=== PATIENT | male | born 1950 | race Two or more races ===

== ENCOUNTER 2021-03-23 14:10 | Emergency (ER) | payer BC ==
[~2021-03-23] VITALS: Ht 172.7 cm; Wt 51.7 kg
--- NOTE | 2021-03-23 14:36 | NUR ---
X-RAY TECH AT THE BEDSIDE
[2021-03-23] MEDS ORDERED: TAMS-12 PO (14:41)
[2021-03-23] MEDS ORDERED: MAGN400O6 PO (14:41)
[2021-03-23] MEDS ORDERED: NA P133E RC (14:41)
[2021-03-23] MEDS ORDERED: FERR325T23 PO (14:41)
[2021-03-23] MEDS ORDERED: INSU100V39 SQ (14:41)
[2021-03-23] MEDS ORDERED: ASPI-1420 PO (14:41)
[2021-03-23] MEDS ORDERED: FOLI0.8T2 PO (14:41)
[2021-03-23] MEDS ORDERED: ROSU5TAB PO (14:41)
[2021-03-23] MEDS ORDERED: BISA10SU11 RC (14:41)
[2021-03-23] MEDS ORDERED: LISI2.5T2 PO (14:41)
[2021-03-23] MEDS ORDERED: CLON0.1T PO (14:41)
[2021-03-23] MEDS ORDERED: DOCU-141 PO (14:41)
[2021-03-23] MEDS ORDERED: GUAI100S11 PO (14:41)
[2021-03-23] MEDS ORDERED: PANT40TA49 PO (14:41)
[2021-03-23] MEDS ORDERED: ACET-2605 PO (14:41)
[2021-03-23] MEDS ORDERED: CRAN425C6 PO (14:41)
[2021-03-23] MEDS ORDERED: ACET-868 PO (14:41)
[2021-03-23] MEDS ORDERED: CARV3.122 PO (14:41)
[2021-03-23] MEDS ORDERED: SENN-261 PO (14:41)
[2021-03-23 15:21] LABS: HEMOGLOBIN 8.1 g/dL (13.5-17.5); MEAN CORPUSCULAR HGB CONC 34 g/dl (31.0-36.0); RED BLOOD CELL COUNT(AUTO) 2.56 MIL/uL (4.5-6.0)
[2021-03-23 15:24] LABS: BASOPHILS % (AUTO) 0.1 % (0.0-2.0); EOSINOPHILS % (AUTO) 2.5 % (0.0-6.0); HEMATOCRIT 24 % (39-51); LYMPHOCYTES # (AUTO) 1.5 K/uL (0.8-4.8); LYMPHOCYTES % (AUTO) 13.8 % (20.0-44.0); MEAN CORPUSCULAR VOLUME 92 fL (80-96); MONOCYTES # (AUTO) 0.6 K/uL (0.1-1.30); MONOCYTES % (AUTO) 5.8 % (2.0-12.0); NEUTROPHILS # (AUTO) 8.5 K/uL (1.8-8.9); NEUTROPHILS % (AUTO) 77.8 % (43.0-81.0); PLATELET COUNT (AUTO) 525 K/uL (150-450); WHITE BLOOD COUNT (AUTO) 10.9 K/uL (4.3-11.0)
[2021-03-23 15:27] LABS: BILIRUBIN,URINE Negative (NEGATIVE); COLOR,URINE YELLOW (YELLOW); LEUKOCYTE ESTERASE ,URINE Trace (NEGATIVE); NITRITE, URINE Negative (NEGATIVE); PH,URINE 5.5 (5.0-8.0); PROTEIN,URINE 30 mg/dl (NEGATIVE); UGLUCOSE 250 MG/DL mg/dL (NEGATIVE); UROBILINOGEN,URINE 0.2 EU/dL (0.2)
[2021-03-23 15:31] LABS: CALCIUM, SERUM 7.9 mg/dL (8.5-10.1); CARBON DIOXIDE 28 mmol/L (21-32); CHLORIDE 103 mmol/L (98-107); CREATININE 1.8 mg/dL (0.6-1.3); GLUCOSE 206 mg/dL (74-106); POTASSIUM 3.6 mmol/L (3.5-5.1); SODIUM SERUM 138 mmol/L (136-145); UREA NITROGEN, BLOOD 32 mg/dL (7-18)
[2021-03-23 15:37] LABS: BACTERIA,URINE Few /HPF (None Seen)
[2021-03-23 15:40] LABS: ALANINE AMINOTRANSFERASE 27 U/L (12-78); ALBUMIN 1.7 g/dL (3.4-5.0); ALKALINE PHOSPHATASE 180 U/L (46-116); ASPARTATE AMINOTRANSFERASE 19 U/L (15-37); BILIRUBIN,DIRECT 0.1 mg/dL (0.0-0.2); BILIRUBIN,TOTAL 0.2 mg/dL (0.2-1.0); TOTAL PROTEIN, SERUM 6.2 g/dL (6.4-8.2)
[2021-03-23 15:43] LABS: MAGNESIUM 1.5 mg/dL (1.8-2.4)
[2021-03-23] MEDS ORDERED: ENOXAPARIN SODIUM 40 MG/0.4 ML DISP.SYRIN SQ ONE (16:00)
[2021-03-23] MEDS ORDERED: FUROSEMIDE 40 MG/4 ML VIAL IV ONE (16:00)
[2021-03-23] MEDS ORDERED: LEVOFLOXACIN 750 MG /D5W 150ML PIGGYBACK IV ONE (16:00)
--- NOTE | 2021-03-23 16:01 | NUR ---
COVID SWAB DONE AND SENT TO THE LAB
[2021-03-23 16:04] LABS: THYROID STIMULATING HORMONE 0.769 uIU/mL (0.358-3.74)
[2021-03-23] MEDS ORDERED: FUROSEMIDE 40 MG/4 ML VIAL ONE (16:22)
[2021-03-23] MEDS ORDERED: ENOXAPARIN SODIUM 60 MG/0.6 ML DISP.SYRIN SQ ONE (16:22)
--- NOTE | 2021-03-23 16:25 | NUR ---
LOVENOX 50 MG OK TO GIVEN PER DR LAW DESPITE CREATININE OF 1.8
--- NOTE | 2021-03-23 17:32 | NUR ---
COVID ANTIGEN SWAB DONE AND SENT TO THE LAB
--- NOTE | 2021-03-23 18:13 | NUR ---
FAXED CLINICALS TO [facility] [phone] TEL [phone]
--- NOTE | 2021-03-23 19:26 | NUR ---
faxed covid result to the cm and spoke to her over the phone re clinicals
--- NOTE | 2021-03-23 20:15 | NUR ---
PT SLEEPING, ATTACHED TO MONITOR AND POX.
--- NOTE | 2021-03-23 20:21 | NUR ---
DR CHRISTIE ON THE PHONE W/ DR CHA, [facility]
--- NOTE | 2021-03-23 21:45 | NUR ---
PT ATTACHED TO MONITOR, BREATHING EVENLY AND UNLABORED.
--- NOTE | 2021-03-23 22:05 | NUR ---
CALLED [facility] TRIMMING CUTTER MACHINE FOR F/U. SHE WILL CALL US BACK WITH AN UPDATE
--- NOTE | 2021-03-23 22:10 | NUR ---
REC'D A CALL BACK FROM [facility] SIMS HAVE THE ER DR FROM [facility] ON LINE. DR CHRISTIE SPOKE TO THE MD. PT WILL BE GETTING TRANSFERRED TO [facility]
--- NOTE | 2021-03-23 23:40 | NUR ---
PT SLEEPING, ATTACHED TO MONITOR AND POX.
--- NOTE | 2021-03-24 00:25 | NUR ---
PT IS ACCEPTED AT [facility] UNDER THE CARE OF DR. NUNEZ. CALL [phone] FOR REPORT. PT IS GOING TO RM [id number]
--- NOTE | 2021-03-24 00:26 | NUR ---
TRANSPORT AUTHORIZATION: [id number]
--- NOTE | 2021-03-24 00:31 | NUR ---
[facility] EARLIEST PICJUP TIME AT 1400
--- NOTE | 2021-03-24 01:20 | NUR ---
CALLED [facility] FOR ALS, NO AVAILABLE UNITS
--- NOTE | 2021-03-24 01:20 | NUR ---
[facility] CALLED FOR ALS TRANSPORT, DOES NOT DO ALS TRANSPORT
--- NOTE | 2021-03-24 01:25 | NUR ---
CALLED [facility], DOES NOT ACCEPT [employer] FOR ALS TRANSPORT EVEN WITH AUTHORIZATION PER DISPATCH.
--- NOTE | 2021-03-24 01:30 | NUR ---
PT WATCHING TV IN BED, ATTACHED TO MONITOR AND POX
--- NOTE | 2021-03-24 01:34 | NUR ---
[facility] CHARGEBACK ANALYST TIME AT 1030.
--- NOTE | 2021-03-24 02:31 | NUR ---
PT SLEEPING, BREATHING EVENLY AND UNLABORED
--- NOTE | 2021-03-24 03:13 | NUR ---
PT WATCHING TV QUIETLY. ATTACHED TO MONITOR AND POX.
--- NOTE | 2021-03-24 04:48 | NUR ---
REC'D A CALL FROM GIL[facility] FROM [facility]SP[facility]. ALS TRANSPO FOR 1000 CANCELED DUE TO STQAFF SHORTAGE
--- NOTE | 2021-03-24 06:22 | NUR ---
pt watching tv, quietly. attached to monitor and pox.
--- NOTE | 2021-03-24 07:50 | NUR ---
CONFIRMED WITH [facility] ETA IS 1300
--- NOTE | 2021-03-24 12:50 | NUR ---
[facility] CALLED UNABLE TO DO ALS TRANSPORT DUE TO STAFFING.
--- NOTE | 2021-03-24 13:48 | NUR ---
CALLED [facility] TEL [phone] SUZANNA WILL CALL US BACK TO HELP WITH TRANSPORTATION.
--- NOTE | 2021-03-24 14:50 | NUR ---
CALL FROM [facility], AMBULANCE TRANSPORT IS 1500
[2021-03-24 16:00] VITALS: BP 153/74
--- NOTE | 2021-03-24 16:00 | NUR ---
REPORT GIVEN TO NURSE TURNER FROM [facility] REPORT GIVEN TO AMBULANCE STAFF
--- NOTE | 2021-03-24 16:16 | NUR ---
THE PATIENT IS TRANSFERED TO [facility] IN STABLE CONDITION
== END 2021-03-24 16:17 ==
LOC: ER 14:16
DX: J18.9 Pneumonia, unspecified organism (principal); I21.4 Non-ST elevation (NSTEMI) myocardial infarction; Z20.822 Contact with and (suspected) exposure to COVID-19; I50.9 Heart failure, unspecified; E78.5 Hyperlipidemia, unspecified; E11.22 Type 2 diabetes mellitus with diabetic chronic kidney disease; N18.9 Chronic kidney disease, unspecified; Z79.4 Long term (current) use of insulin; N40.0 Benign prostatic hyperplasia without lower urinary tract symptoms; Z79.899 Other long term (current) drug therapy; K21.9 Gastro-esophageal reflux disease without esophagitis; E83.42 Hypomagnesemia; D64.9 Anemia, unspecified
CPT/HCPCS: 36415; 71045; 80048; 80076; 81001; 83735; 83880; 84443; 84484; 85025; 85652; 85730; 86850; 86923; 87086; 87426; 93005; 96365; 96372; 96375; 99291; 99292; J1650; J1940; J1956; C9803; U0003

== ENCOUNTER 2021-08-12 11:13 | Inpatient (IN) | payer BC, OTHER ==
[~2021-08-12] VITALS: Ht 165.1 cm; Wt 39.5 kg
[2021-08-12] VITALS (7 sets, daily range): BP systolic 151–183; BP diastolic 71–111
[~2021-08-12 11:13] MED LIST: ACET-2605 PO; ACET-868 PO; ASPI-1420 PO; BISA10SU11 RC; CARV3.122 PO; CLON0.1T PO; CRAN425C6 PO; DOCU-141 PO; FERR325T23 PO; FOLI0.8T2 PO; GUAI100S11 PO; INSU100V39 SQ; LISI2.5T2 PO; MAGN400O6 PO; NA P133E RC; PANT40TA49 PO; ROSU5TAB PO; SENN-261 PO; TAMS-12 PO
--- NOTE | 2021-08-12 11:19 | NUR ---
ACCUCHECK READING IS 474. DR MOSQUEDA AWARE.
--- NOTE | 2021-08-12 11:25 | NUR ---
SHER RA60 From [facility] ALOC/Hypoxic 88%, BS-545. The patient is received on non-rebreather mask 15L/min with saturation is 100%. Respiration regular. Attached to the monitor. Warm blanket provided for comfort. Will continue to monitor the patient.
--- NOTE | 2021-08-12 11:26 | NUR ---
THE PATIENT PRESENTED WITH GASPAR CATH.
--- NOTE | 2021-08-12 11:30 | NUR ---
MOVE SHEET SUBMITTED.
--- NOTE | 2021-08-12 11:33 | NUR ---
The patient is placed on oxygen at 5L.min via nasal cannula and saturation is at 96%. Dr. Morgan made aware.
--- NOTE | 2021-08-12 11:50 | NUR ---
THE PATIENT IS TAKEN TO CT [facility]IA [facility]
[2021-08-12] MEDS ORDERED: IV NS 0.9% 500 ML BAG IV ONE (12:00)
--- NOTE | 2021-08-12 12:00 | NUR ---
THE PATIENT IS BACK FROM CT VIA [facility]
[2021-08-12] MEDS ORDERED: INSU100V3 IJ (12:05)
--- NOTE | 2021-08-12 12:10 | NUR ---
COVID ANTIGEN SWAB DONE AND SENT TO THE LAB.
--- NOTE | 2021-08-12 12:17 | NUR ---
URINE COLLECTED AND SENT TO THE LAB
[2021-08-12 12:32] LABS: BASOPHILS % (AUTO) 0.1 % (0.0-2.0); HEMATOCRIT 37 % (39-51); HEMOGLOBIN 11.9 g/dL (13.5-17.5); LYMPHOCYTES # (AUTO) 0.6 K/uL (0.8-4.8); LYMPHOCYTES % (AUTO) 2.4 % (20.0-44.0); MEAN CORPUSCULAR HGB CONC 32 g/dl (31.0-36.0); MEAN CORPUSCULAR VOLUME 94 fL (80-96); MONOCYTES # (AUTO) 0.3 K/uL (0.1-1.30); MONOCYTES % (AUTO) 1.4 % (2.0-12.0); NEUTROPHILS # (AUTO) 22.5 K/uL (1.8-8.9); NEUTROPHILS % (AUTO) 96.1 % (43.0-81.0); PLATELET COUNT (AUTO) 427 K/uL (150-450); RED BLOOD CELL COUNT(AUTO) 3.99 MIL/uL (4.5-6.0); WHITE BLOOD COUNT (AUTO) 23.4 K/uL (4.3-11.0)
[2021-08-12 12:40] LABS: ALANINE AMINOTRANSFERASE 23 U/L (12-78); ALBUMIN 3.1 g/dL (3.4-5.0); ALKALINE PHOSPHATASE 235 U/L (46-116); ASPARTATE AMINOTRANSFERASE 12 U/L (15-37); BILIRUBIN,DIRECT 0.2 mg/dL (0.0-0.2); BILIRUBIN,TOTAL 0.6 mg/dL (0.2-1.0); CALCIUM, SERUM 10.2 mg/dL (8.5-10.1); CHLORIDE 97 mmol/L (98-107); CREATININE 6.3 mg/dL (0.6-1.3); SODIUM SERUM 130 mmol/L (136-145); TOTAL PROTEIN, SERUM 9.4 g/dL (6.4-8.2)
[2021-08-12 12:48] LABS: CARBON DIOXIDE 8 mmol/L (21-32); POTASSIUM 7.9 mmol/L (3.5-5.1)
[2021-08-12 12:49] LABS: GLUCOSE 576 mg/dL (74-106); UREA NITROGEN, BLOOD 175 mg/dL (7-18)
--- NOTE | 2021-08-12 12:50 | NUR ---
LAB CALLED [place] 4.9 DR. MOSQUEDA AWARE.
--- NOTE | 2021-08-12 12:55 | NUR ---
DR. SHOOK SPEAKING WITH DR. MOSQUEDA.
[2021-08-12] MEDS ORDERED: IV NS 0.9% 1,000 ML IV PRN (13:00)
[2021-08-12] MEDS ORDERED: CEFEPIME 1 GM in IV D5W 50 ML IV ONE (13:00)
[2021-08-12] MEDS ORDERED: INSULIN REGULAR, HUMAN 100 UNITS in IV NS 0.9% 100 ML IV PRN ×2 (13:00)
[2021-08-12 13:25] LABS: BILIRUBIN,URINE NEGATIVE (NEGATIVE); COLOR,URINE YELLOW (YELLOW); LEUKOCYTE ESTERASE ,URINE LARGE (NEGATIVE); NITRITE, URINE NEGATIVE (NEGATIVE); PROTEIN,URINE >=300 mg/dl (NEGATIVE); UGLUCOSE NEGATIVE (NEGATIVE); UROBILINOGEN,URINE 0.2 EU/dL (0.2)
[2021-08-12 13:27] LABS: PH,URINE >9.0 (5.0-8.0)
[2021-08-12] MEDS ORDERED: INSULIN REGULAR, HUMAN 100 UNIT/ML 10 ML VIAL ONE (13:32)
[2021-08-12 13:36] LABS: CALCIUM, SERUM 9.6 mg/dL (8.5-10.1); CHLORIDE 98 mmol/L (98-107); CREATININE 6.3 mg/dL (0.6-1.3); MAGNESIUM 3.1 mg/dL (1.8-2.4); SODIUM SERUM 130 mmol/L (136-145)
[2021-08-12] MEDS ORDERED: SODIUM BICARBONATE SYR 50 MEQ/50 ML DISP.SYRIN ONE (13:38)
[2021-08-12] MEDS ORDERED: CALCIUM CHLORIDE 1,000 MG/10 ML DISP.SYRIN ONE (13:38)
[2021-08-12] MEDS: VANCOMYCIN 1 GM in IV D5W 250 ML IV ONE ×2 (13:40→14:19)
[2021-08-12] MEDS ORDERED: ALBUTEROL FS 2.5 MG/3 ML VIAL.NEB ONE (13:46)
[2021-08-12 13:54] LABS: RBC,URINE 81-100 /HPF (0-2)
[2021-08-12 13:56] LABS: BACTERIA,URINE Moderate /HPF (None Seen); SQUAMOUS EPITHELIAL CELL,UR None Seen /HPF (None Seen); TRIPLE PHOSPHATE CRYSTAL,UR Moderate /HPF (None Seen)
[2021-08-12 13:56] LABS: CARBON DIOXIDE 6 mmol/L (21-32); GLUCOSE 584 mg/dL (74-106); POTASSIUM 7.8 mmol/L (3.5-5.1)
[2021-08-12 13:57] LABS: PHOSPHORUS 9.6 mg/dL (2.5-4.9); UREA NITROGEN, BLOOD 173 mg/dL (7-18)
[2021-08-12] MEDS ORDERED: SODIUM BICARBONATE SYR 50 MEQ/50 ML DISP.SYRIN IV ONE (14:00)
[2021-08-12] MEDS ORDERED: ALBUTEROL FS 2.5 MG/3 ML VIAL.NEB NEB ONE (14:00)
[2021-08-12] MEDS ORDERED: CALCIUM CHLORIDE 1,000 MG/10 ML DISP.SYRIN IV ONE (14:00)
[2021-08-12] MEDS ORDERED: INSULIN REGULAR, HUMAN 100 UNIT/ML 10 ML VIAL IV ONE (14:00)
[2021-08-12] MEDS ORDERED: IV NS 0.9% 1,000 ML IV ONE ×2 (14:30→16:00)
--- NOTE | 2021-08-12 14:39 | NUR ---
NS 1000 ML WIDE OPEN X1 PER DR MOSQUEDA. THE ORDER IS READ BACK, VERIFIED. NOTED AND CARRIED OUT.
[2021-08-12 15:17] LABS: CALCIUM, SERUM 9.2 mg/dL (8.5-10.1); CHLORIDE 104 mmol/L (98-107); CREATININE 5.6 mg/dL (0.6-1.3); MAGNESIUM 2.9 mg/dL (1.8-2.4); SODIUM SERUM 133 mmol/L (136-145)
--- NOTE | 2021-08-12 15:24 | NUR ---
[facility] [phone] FAXING CLINICALS TO [phone]
[2021-08-12 15:47] LABS: CARBON DIOXIDE 6 mmol/L (21-32); GLUCOSE 489 mg/dL (74-106); POTASSIUM 6.7 mmol/L (3.5-5.1); UREA NITROGEN, BLOOD 169 mg/dL (7-18)
[2021-08-12 15:48] LABS: PHOSPHORUS 8.3 mg/dL (2.5-4.9)
[2021-08-12] MEDS ORDERED: CLONIDINE HCL 0.1 MG TABLET PO PRN (16:00)
[2021-08-12] MEDS ORDERED: MAGNESIUM HYDROXIDE 30 ML UDC PO PRN (16:00)
[2021-08-12] MEDS ORDERED: SODIUM POLYSTYRENE SULFONATE 15 G/60 ML BOTTLE PO ONE (16:00)
[2021-08-12] MEDS ORDERED: SODIUM BICARBONATE 5 ML VIAL IV ONE (16:00)
[2021-08-12] MEDS ORDERED: IV 1/2NS 1000 ML 1,000 ML IV PRN (16:00)
[2021-08-12] MEDS ORDERED: BISACODYL SUPP (10 MG) 10 MG/SUPP.RECT SUPP.RECT RC PRN (16:00)
[2021-08-12] MEDS ORDERED: NA PHOS,M-B/NA PHOS,DI-BA 1 EA ENEMA RC PRN (16:00)
[2021-08-12] MEDS ORDERED: ACETAMINOPHEN 325 MG TABLET PO PRN (16:00)
--- NOTE | 2021-08-12 16:29 | NUR ---
[facility] CALLED PT APPROVED FOR ADMISSION REF # [id number]
[2021-08-12 16:58] LABS: CALCIUM, SERUM 9.9 mg/dL (8.5-10.1); CHLORIDE 103 mmol/L (98-107); SODIUM SERUM 133 mmol/L (136-145)
--- NOTE | 2021-08-12 17:00 | NUR ---
PATIENT WILL GO TO ICU RM 257.
[2021-08-12 17:02] LABS: CARBON DIOXIDE 7 mmol/L (21-32); GLUCOSE 428 mg/dL (74-106); POTASSIUM 6.6 mmol/L (3.5-5.1)
[2021-08-12 17:03] LABS: PHOSPHORUS 8.7 mg/dL (2.5-4.9); UREA NITROGEN, BLOOD 168 mg/dL (7-18)
--- NOTE | 2021-08-12 17:15 | NUR ---
REPORT GIVEN TO NURSE MEJIA FROM ICU FOR JOHN
[2021-08-12] MEDS ORDERED: INSULIN REGULAR, HUMAN 100 UNIT/ML 3 ML VIAL IJ SCH (17:30)
--- NOTE | 2021-08-12 17:30 | NUR ---
DR SHOOK MADE AWARE OF US KIDENY RESULT AND THAT BLADDER SCAN SHOWED 400 ML OF URINE AND THAT THE PATIENT CAME IN WITH GASPAR CATH WITH ABOUT 20 ML IOF URINE OUTPUT SINCE COMING TO ER. PER DR SHOOK TO REPLACE THE GASPAR CATH. THE PATIENT IS IN PROCESS OF GETTING TRANSFERED TO ROOM 257, SO RECEIVING NURSE ROBERTO IS MADE AWARE AND HE VERBALIZED UNDERSTANDING. ASLO, REMINIDED THE NURSE THAT ACCUCHECK TIME WILL BE DUE SHORTLY. THE PATIENT IS TRANSFERED TO ROOM 257 IN STABLE CONDITION AND PER ACLS POLICY.
[2021-08-12] MEDS ORDERED: INS (REG) DRIP 100 U/100 ML NS IV PRN ×2 (18:30)
--- NOTE | 2021-08-12 18:30 | NUR ---
RN NOTES RECEIVED CARE OF PATIENT FROM ER WHILE PATIENT AWAKE, CONFUSED, NON-VERBAL, DOES NOT FOLLOW COMMANDS. PATIENT ON ROOM AIR, BREATHING EVEN AND UNLABORED, O2 SAT IS 100%. PATIENT ON TELE MONITOR SHOWING NSR WITH HR OF 73. PATIENT NOTED WITH GASPAR CATH, DRAINING MINIMAL AMOUNTS OF DARK YELLOW URINE. PATIENT ON INSULIN DRIP RUNNING AT 4.123 ML/HR, LATEST GLUCOSE READING IS 184, WILL FOLLOW HOSPITAL PROTOCOL AND DECREASE RATE TO 2.76. SAFETY MEASURES IMPLEMENTED ACCORDING TO HOSPITAL PROTOCOLS. WILL CONTINUE TO MONITOR PATIENT.
[2021-08-12] MEDS: CARVEDILOL 3.125 MG TABLET PO SCH ×2 (18:58→20:50)
[2021-08-12] MEDS: TAMSULOSIN 0.4 MG CAP.SR.24H PO SCH (18:58)
--- NOTE | 2021-08-12 20:51 | NUR ---
RN NOTES WILL HOLD SCHEDULED 2100 ADMINISTRATION OF COREG 3.125MG PER PHARMACY SINCE LAST ADMINISTRATION WAS AT 1858. WILL CONTINUE TO MONITOR PATIENT.
[2021-08-12 21:27] LABS: CALCIUM, SERUM 9.6 mg/dL (8.5-10.1); CHLORIDE 108 mmol/L (98-107); CREATININE 5.5 mg/dL (0.6-1.3); GLUCOSE 88 mg/dL (74-106); SODIUM SERUM 136 mmol/L (136-145)
[2021-08-12 21:29] LABS: CARBON DIOXIDE 10 mmol/L (21-32)
[2021-08-12 21:30] LABS: UREA NITROGEN, BLOOD 164 mg/dL (7-18)
--- NOTE | 2021-08-12 21:30 | NUR ---
RN NOTES INSULIN DRIP RUNNING AT 1.065 FOR A GLUCOSE READING OF 71 BASED ON [address] PR[address]. DR. SHOOK MADE AWARE. DR SHOOK ALSO MADE AWARE OF ANION GAP OF 22. LATEST GLUCOSE READING IS 74. ORDER IS TO ADMINISTER 10 UNITS OF LANTUS, 2 HOURS LATER DISCONTINUE INSULIN DRIP, THEN START MODERATE ACHS SLIDING SCALE. WILL CARRY OUT ORDERS AND CONTINUE TO MONITOR PATIENT.
[2021-08-12] MEDS ORDERED: INSULIN GLARGINE, 100 UNIT/ML CARTRIDGE SQ ONE ×2 (22:00→22:20)
[2021-08-12] MEDS: IV D5/0.45 NACL 1,000 ML IV PRN (22:17)
[2021-08-12] MEDS: SENNOSIDES 8.6 MG TABLET PO SCH (22:24)
[2021-08-12] MEDS: ATORVASTATIN 10 MG TABLET PO SCH (22:24)
[2021-08-12] MEDS: BLOOD SUGAR DIAGNOSTIC 1 EACH STRIP VI SCH (22:27)
[2021-08-13] VITALS (51 sets, daily range): BP systolic 89–167; BP diastolic 36–101
[2021-08-13 01:26] LABS: CALCIUM, SERUM 9.3 mg/dL (8.5-10.1); CARBON DIOXIDE 12 mmol/L (21-32); CHLORIDE 109 mmol/L (98-107); CREATININE 5.4 mg/dL (0.6-1.3); GLUCOSE 106 mg/dL (74-106); POTASSIUM 5.7 mmol/L (3.5-5.1); SODIUM SERUM 137 mmol/L (136-145)
[2021-08-13 01:45] LABS: UREA NITROGEN, BLOOD 162 mg/dL (7-18)
[2021-08-13 04:37] LABS: BASOPHILS # (AUTO) 0.1 K/uL (0.0-0.2); BASOPHILS % (AUTO) 0.3 % (0.0-2.0); HEMATOCRIT 31 % (39-51); HEMOGLOBIN 10.2 g/dL (13.5-17.5); LYMPHOCYTES # (AUTO) 0.5 K/uL (0.8-4.8); LYMPHOCYTES % (AUTO) 1.8 % (20.0-44.0); MEAN CORPUSCULAR HGB CONC 33 g/dl (31.0-36.0); MEAN CORPUSCULAR VOLUME 88 fL (80-96); MONOCYTES # (AUTO) 0.3 K/uL (0.1-1.30); NEUTROPHILS # (AUTO) 26.2 K/uL (1.8-8.9); NEUTROPHILS % (AUTO) 96.9 % (43.0-81.0); PLATELET COUNT (AUTO) 289 K/uL (150-450); RED BLOOD CELL COUNT(AUTO) 3.52 MIL/uL (4.5-6.0)
[2021-08-13 04:50] LABS: ALANINE AMINOTRANSFERASE 22 U/L (12-78); ALBUMIN 2.5 g/dL (3.4-5.0); ALKALINE PHOSPHATASE 257 U/L (46-116); ASPARTATE AMINOTRANSFERASE 25 U/L (15-37); BILIRUBIN,TOTAL 0.8 mg/dL (0.2-1.0); CARBON DIOXIDE 12 mmol/L (21-32); CHLORIDE 106 mmol/L (98-107); CREATININE 5.2 mg/dL (0.6-1.3); GLUCOSE 191 mg/dL (74-106); POTASSIUM 5.6 mmol/L (3.5-5.1); SODIUM SERUM 135 mmol/L (136-145); TOTAL PROTEIN, SERUM 7.5 g/dL (6.4-8.2)
[2021-08-13 05:13] LABS: UREA NITROGEN, BLOOD 165 mg/dL (7-18)
[2021-08-13] MEDS: IV D5/0.45 NACL 1,000 ML IV PRN (06:18)
--- NOTE | 2021-08-13 07:10 | NUR ---
RN NOTES RECEIVED PT ON BED, ALERT, CONFUSED, DOES NOT FOLLOW COMMAND, ON TELE SR HR IN 70'S , GASPAR DRAINING TO GRAVITY, IV SITES CLEAN,DRY AND INTACT , SR UP x3, CALL LIGHT WITHIN EASY REACH, IVF D5 1/2 NS AT 125 CC/HR RUNNING , SR UP x3, CALL LIGHT WITHIN EASY REACH ,BED LOCKED AND IN LOWEST POSITION, CONTINUE TO MONITOR
--- NOTE | 2021-08-13 07:29 | NUR ---
RN NOTES ENDORSED CARE OF PATIENT TO AM NURSE. PATIENT IS IN BED, CONFUSED, RESTLESS, YELLING OUT INCOMPREHENSIBLE WORDS. PATIENT IS ON BILATERAL SOFT WRIST RESTRAINTS, NO SKIN OR CIRCULATORY COMPROMISE NOTED. PATIENT IS ON O2 THERAPY VIA NC AT 3 L/MIN, O2 SAT 100%. PATIENT SHOWING NSR ON TELE MONITOR, NO DISTRESS NOTED. ALL DUE MEDS GIVEN, ALL NEEDS ATTENDED TO. ENDORSED TO AM NURSE FOR JOHN.
--- NOTE | 2021-08-13 08:00 | NUR ---
RN NOTES GASPAR CATHETER CHANGED PER MD ORDER, 700CC CLOUDY, PURULENT, CARLOS COLOR URINE DRAINED.
[2021-08-13] MEDS: FERROUS SULFATE (325 MG) 325 MG/TAB TABLET PO SCH (08:17)
[2021-08-13] MEDS: DOCUSATE SODIUM 100 MG CAPSULE PO SCH (08:17)
[2021-08-13] MEDS: CARVEDILOL 3.125 MG TABLET PO SCH (08:17)
[2021-08-13] MEDS: PANTOPRAZOLE 40 MG TABLET.DR PO SCH (08:17)
[2021-08-13] MEDS: ASPIRIN EC 81 MG TABLET.DR PO SCH (08:17)
[2021-08-13] MEDS: INSULIN REGULAR, HUMAN 100 UNIT/ML 3 ML VIAL SQ PRN (08:20)
[2021-08-13] MEDS: BLOOD SUGAR DIAGNOSTIC 1 EACH STRIP VI SCH ×4 (08:21→21:47)
[2021-08-13] MEDS: *INSULIN REGULAR(HUMULIN R)HUM 100 UNIT/ML VIAL SQ PRN (11:52)
[2021-08-13] MEDS ORDERED: INSULIN GLARGINE, 100 UNIT/ML CARTRIDGE SQ SCH (12:00)
[2021-08-13] MEDS ORDERED: PIPERACILLIN /TAZOBACTAM 2.25 G in IV D5W 50 ML IV SCH (12:00)
[2021-08-13 12:26] LABS: CALCIUM, SERUM 8.5 mg/dL (8.5-10.1); CHLORIDE 106 mmol/L (98-107); CREATININE 5.6 mg/dL (0.6-1.3); GLUCOSE 291 mg/dL (74-106); POTASSIUM 5.6 mmol/L (3.5-5.1); SODIUM SERUM 135 mmol/L (136-145)
[2021-08-13 12:32] LABS: CARBON DIOXIDE 8 mmol/L (21-32)
--- NOTE | 2021-08-13 13:01 | NUR ---
RN NOTES DR SHOOK NOTIFIED REGARDING , BMP RESULTS , NO NEW ORDER RECEIVED.
[2021-08-13] MEDS ORDERED: SODIUM BICARBONATE SYR 50 MEQ/50 ML DISP.SYRIN IV ONE (13:30)
[2021-08-13] MEDS: MEROPENEM 500 MG in IV NS 0.9% 100 ML IV SCH (13:40)
[2021-08-13] MEDS ORDERED: CEFTRIAXONE 1 G in IV D5W 50 ML IV SCH (16:00)
[2021-08-13] MEDS: GLUCERNA SHAKE 237 ML CAN PO SCH (17:00)
--- NOTE | 2021-08-13 17:03 | NUR ---
RN NOTES BG 47 ,REPEAT 48 , PT IS LETHARGIC, ONE AMP OF D50 IV GIVEN , DR SHOOK NOTIFIED, CONTINUE TO MONITOR .
[2021-08-13] MEDS: DEXTROSE 50%-WATER 50 ML DISP.SYRIN IV PRN ×2 (17:05→21:41)
[2021-08-13] MEDS: Z GUARD REMEDY 4 OZ OINT TP SCH (17:24)
[2021-08-13] MEDS: TAMSULOSIN 0.4 MG CAP.SR.24H PO SCH (17:25)
--- NOTE | 2021-08-13 17:35 | NUR ---
RN NOTES BG =150 , PT IS MORE ALERT, REFUSED TO EAT , PT COUGHS WITH PO INTAKE , SWALLOWING EVAL ORDERED, DR SHOOK NOTIFIED, LANTUS HELD PER MD ORDER .
[2021-08-13] MEDS: IV 1/2NS 1000 ML 1,000 ML IV PRN ×2 (19:13→22:59)
--- NOTE | 2021-08-13 19:19 | NUR ---
RN NOTES PT IS ALERT , HOB ELEVATED, IVF 1/NS AT 100CC/HR RUNNING , SR UP x3, CALL LIGHT WITHIN EASY REACH, BED LOCKED AND IN LOWEST POSITION, WILL ENDORSE TO FIREARMS EXPERT NURSE FOR CONTINUITY OF CARE.
--- NOTE | 2021-08-13 19:36 | NUR ---
RN NOTES RECEIVED CARE OF PATIENT FROM AM WHILE PATIENT AWAKE, CONFUSED, NON-VERBAL, DOES NOT FOLLOW COMMANDS, AGITATED AND YELLING INCOMPREHENSIBLE WORDS. PATIENT NOTED WITH BILATERAL SOFT WRIST RESTRAINTS, NO COMPLICATIONS WITH SKIN INTEGRITY OR CIRCULATION. PATIENT ON O2 THERAPY VIA NC RUNNING AT 3 L/MIN, O2 SAT IS 100%. PATIENT ON TELE MONITOR SHOWING NSR WITH HR OF 75. PATIENT NOTED WITH GASPAR CATH, DRAINING LIGHT RED URINE. IV FLUIDS RUNNING AT 100ML/HR WITH IV 1/2NS. SAFETY MEASURES IMPLEMENTED ACCORDING TO HOSPITAL PROTOCOLS. WILL CONTINUE TO MONITOR PATIENT.
[2021-08-13] MEDS: MUPIROCIN OINT 2% 22 GM TUBE NS SCH (21:13)
[2021-08-13] MEDS: ATORVASTATIN 10 MG TABLET PO SCH (21:14)
[2021-08-13] MEDS: SENNOSIDES 8.6 MG TABLET PO SCH (21:14)
[2021-08-13] MEDS: HEPARIN SODIUM, PORCINE 5000 UNITS/1 ML VIAL SQ SCH (21:16)
[2021-08-14] VITALS (27 sets, daily range): BP systolic 93–163; BP diastolic 31–79
[2021-08-14 04:35] LABS: BASOPHILS % (AUTO) 0.2 % (0.0-2.0); EOSINOPHILS % (AUTO) 0.1 % (0.0-6.0); HEMATOCRIT 24 % (39-51); LYMPHOCYTES # (AUTO) 1.3 K/uL (0.8-4.8); LYMPHOCYTES % (AUTO) 6.1 % (20.0-44.0); MEAN CORPUSCULAR HGB CONC 33 g/dl (31.0-36.0); MEAN CORPUSCULAR VOLUME 88 fL (80-96); MONOCYTES # (AUTO) 0.5 K/uL (0.1-1.30); MONOCYTES % (AUTO) 2.5 % (2.0-12.0); NEUTROPHILS # (AUTO) 19.2 K/uL (1.8-8.9); NEUTROPHILS % (AUTO) 91.1 % (43.0-81.0); PLATELET COUNT (AUTO) 218 K/uL (150-450); RED BLOOD CELL COUNT(AUTO) 2.73 MIL/uL (4.5-6.0); WHITE BLOOD COUNT (AUTO) 21.1 K/uL (4.3-11.0)
[2021-08-14 04:55] LABS: ALANINE AMINOTRANSFERASE 18 U/L (12-78); ALBUMIN 2.1 g/dL (3.4-5.0); ALKALINE PHOSPHATASE 180 U/L (46-116); ASPARTATE AMINOTRANSFERASE 23 U/L (15-37); BILIRUBIN,TOTAL 0.4 mg/dL (0.2-1.0); CALCIUM, SERUM 8.1 mg/dL (8.5-10.1); CARBON DIOXIDE 17 mmol/L (21-32); CHLORIDE 110 mmol/L (98-107); CREATININE 4.2 mg/dL (0.6-1.3); GLUCOSE 135 mg/dL (74-106); SODIUM SERUM 139 mmol/L (136-145); TOTAL PROTEIN, SERUM 6.6 g/dL (6.4-8.2)
[2021-08-14 05:02] LABS: UREA NITROGEN, BLOOD 138 mg/dL (7-18)
--- NOTE | 2021-08-14 06:52 | NUR ---
RN NOTES PATIENT REMAINS IN BED, SLEEPING, WAKES UP TO NAME, PATIENT IS CONFUSED. ALL PATIENT NEEDS MET THROUGHOUT SHIFT. ALL DUE MED GIVEN. NO SIGNIFICANT FINDINGS UPON ALL NURSING ASSESSMENTS. SAFETY MEASURES IMPLEMENTED ACCORDING TO HOSPITAL PROTOCOLS. WILL ENDORSE TO AM NURSE FOR CONTINUITY OF CARE.
[2021-08-14] MEDS: GLUCERNA SHAKE 237 ML CAN PO SCH ×2 (07:46→17:27)
[2021-08-14] MEDS: BLOOD SUGAR DIAGNOSTIC 1 EACH STRIP VI SCH ×4 (07:46→21:54)
[2021-08-14] MEDS: PANTOPRAZOLE 40 MG TABLET.DR PO SCH (07:51)
[2021-08-14] MEDS: DOCUSATE SODIUM 100 MG CAPSULE PO SCH (08:00)
[2021-08-14] MEDS: FERROUS SULFATE (325 MG) 325 MG/TAB TABLET PO SCH (08:00)
[2021-08-14] MEDS: ASPIRIN EC 81 MG TABLET.DR PO SCH (08:00)
--- NOTE | 2021-08-14 08:00 | NUR ---
RN NOTES RECEIVED PATIENT IN THE BED UGANDAN SPEAKER, ON O2-2LNC-100%, NO ACUTE RESPIRATORY DISTRESS. PATIENT CONFUSED, TOTAL CARE. DUE MEDICATION ADMINISTERED CRUSHED, AND ADMINISTERED WITH APPLE SAUCE. PATIENT POOR EATER TOLERATED BREAKFAST 10%, BUN/CREATININE LAB VALUES NOTIFIED ROUND CUTTER OPERATOR NEW ORDER IS KEEP MONITORING. PATIENT HAS POOR URINE OUTPUT WELL. ASSIST TURN AND REPOSTION Q 2 HR. CALL LIGHT WITHIN TO REACH, WILL FOLLOW UP.
[2021-08-14] MEDS: MUPIROCIN OINT 2% 22 GM TUBE NS SCH ×2 (08:01→20:53)
[2021-08-14] MEDS: HEPARIN SODIUM, PORCINE 5000 UNITS/1 ML VIAL SQ SCH ×2 (08:13→20:53)
[2021-08-14] MEDS: Z GUARD REMEDY 4 OZ OINT TP SCH ×2 (08:14→21:10)
[2021-08-14] MEDS: IV 1/2NS 1000 ML 1,000 ML IV PRN ×2 (08:20→21:43)
--- NOTE | 2021-08-14 09:40 | NUR ---
PATIENT SEEN AND EXAMINED BY DR. SHOOK. PER MD-PATIENT STABLE FOR DOWNGRADE TO MED SURG FLOOR.
[2021-08-14] MEDS: METOPROLOL SUCCINATE 25 MG TAB.SR.24H PO SCH (10:27)
[2021-08-14] MEDS: MEROPENEM 500 MG in IV NS 0.9% 100 ML IV SCH (12:14)
--- NOTE | 2021-08-14 14:40 | NUR ---
RN NOTES TRANSFERRED PATIENT TO THE MED/SURGE UNIT ROOM 323 BED 1 WITH STABLE CONDITION. PATIENT HAS NO ACUTE RESPIRATORY DISTRESS,VSS, REFUSED PAIN SERBIAN SPEAKER MALE. GASPAR OUTPUT WAS 900ML. BEDSIDE REPORT GIVEN KEYUR BLACKWELL FOLLOW PLAN OF CARE.
--- NOTE | 2021-08-14 15:04 | NUR ---
RN NOTES RECEIVED PT FROM VISUAL COMMUNICATIONS INSTRUCTOR LING VIA BED, PT IS AWAKE, ALERT AND VERBALLY RESPONSIVE, WITH PERIODS OF CONFUSION, NO SIGN OF PAIN, NOT IN DISTRESS, ON ROOM AIR, ROOM SET UP ORIENTATION PROVIDED, IV FLUIDS INFUSING WELL, PT WITH F/C DRAINING WELL WITH YELLOWISH PINKISH URINE, KEPT WARM AND COMFORTABLE IN BED, BED ALARM ON.
[2021-08-14] MEDS: TAMSULOSIN 0.4 MG CAP.SR.24H PO SCH (18:17)
--- NOTE | 2021-08-14 18:42 | NUR ---
RN MS NOTES PT IN BED, RESTING, NO SIGN OF PAIN OR DISTRESS, IV FLUIDS INFUSING WELL, WITH EPISODES OF TRYING TO GET OUT OF BED, FALL RISK, TRYING TO PULL OUT IV TUBES, TRYING TO HIT STAFF, DR. SHOOK INFORMED, ORDERED SOFT WRIST RESTRAINT, MONITORED FOR SKIN INTEGRITY, ASSISTED WITH MEALS, PM CARE PROVIDED, ALL NEEDS ATTENDED.
--- NOTE | 2021-08-14 20:06 | NUR ---
RECEIVED PATIENT IN BED, ALERT/ORIENTED X1, ROOM AIR, CONFUSED, NO COMPLAIN OF PAIN, PULLING IV LINES, BILATERAL SOFT WRIST RESTRAINTS, GASPAR CATHETER DRAINING, IVF AT 75 ML/HR, KEPT SAFE, FOLLOWING RESTRAINTS MONITORING PROTOCOL, WILL CONTINUE TO MONITOR.
[2021-08-14] MEDS: SENNOSIDES 8.6 MG TABLET PO SCH (21:07)
[2021-08-14] MEDS: ATORVASTATIN 10 MG TABLET PO SCH (21:08)
--- NOTE | 2021-08-15 06:42 | NUR ---
ALERT/ORIENTED X1, CONFUSED, ROOM AIR, CAN BE COMBATIVE, REMOVING IV LINES, BILATERAL WRIST RESTRAINTS, FOLLOWED MONITORING PROTOCOL, NO INJURY.GASPAR CATHETER WITH HEMATURIA. PER PLAN OF CARE, FOR ACUTE ON CHRONIC RENAL FAILURE, CONTINUE IVF, GASPAR CATHETER FOR URINARY RETENTION AND BPH. MERREM FOR UTI.
[2021-08-15] MEDS: IV 1/2NS 1000 ML 1,000 ML IV PRN (07:40)
[2021-08-15] MEDS: BLOOD SUGAR DIAGNOSTIC 1 EACH STRIP VI SCH ×4 (07:45→22:26)
[2021-08-15 08:00] VITALS: BP 124/66
[2021-08-15] MEDS: DOCUSATE SODIUM 100 MG CAPSULE PO SCH (09:50)
[2021-08-15] MEDS: GLUCERNA SHAKE 237 ML CAN PO SCH ×2 (09:50→17:42)
[2021-08-15] MEDS: FERROUS SULFATE (325 MG) 325 MG/TAB TABLET PO SCH (09:50)
[2021-08-15] MEDS: METOPROLOL SUCCINATE 25 MG TAB.SR.24H PO SCH (09:50)
[2021-08-15] MEDS: PANTOPRAZOLE 40 MG TABLET.DR PO SCH (09:51)
[2021-08-15] MEDS: MUPIROCIN OINT 2% 22 GM TUBE NS SCH ×2 (09:51→21:20)
[2021-08-15] MEDS: ASPIRIN EC 81 MG TABLET.DR PO SCH (09:51)
[2021-08-15] MEDS: HEPARIN SODIUM, PORCINE 5000 UNITS/1 ML VIAL SQ SCH ×2 (09:54→21:15)
[2021-08-15] MEDS: Z GUARD REMEDY 4 OZ OINT TP SCH ×2 (09:54→21:18)
[2021-08-15] MEDS: LEVOFLOXACIN (250MG) 250 MG TABLET PO SCH (09:56)
[2021-08-15] MEDS ORDERED: OLANZAPINE 10 MG VIAL IM PRN (10:00)
[2021-08-15] MEDS: *INSULIN REGULAR(HUMULIN R)HUM 100 UNIT/ML VIAL SQ PRN ×2 (13:30→22:47)
[2021-08-15 14:32] LABS: CALCIUM, SERUM 8.5 mg/dL (8.5-10.1); CARBON DIOXIDE 15 mmol/L (21-32); CHLORIDE 111 mmol/L (98-107); CREATININE 2.9 mg/dL (0.6-1.3); GLUCOSE 280 mg/dL (74-106); SODIUM SERUM 140 mmol/L (136-145)
[2021-08-15 14:37] LABS: BASOPHILS % (AUTO) 0.2 % (0.0-2.0); EOSINOPHILS % (AUTO) 0.4 % (0.0-6.0); HEMATOCRIT 27 % (39-51); HEMOGLOBIN 9.1 g/dL (13.5-17.5); LYMPHOCYTES # (AUTO) 0.9 K/uL (0.8-4.8); MEAN CORPUSCULAR HGB CONC 33 g/dl (31.0-36.0); MEAN CORPUSCULAR VOLUME 88 fL (80-96); MONOCYTES # (AUTO) 0.3 K/uL (0.1-1.30); NEUTROPHILS # (AUTO) 9.9 K/uL (1.8-8.9); NEUTROPHILS % (AUTO) 88.4 % (43.0-81.0); PLATELET COUNT (AUTO) 222 K/uL (150-450); RED BLOOD CELL COUNT(AUTO) 3.11 MIL/uL (4.5-6.0); WHITE BLOOD COUNT (AUTO) 11.2 K/uL (4.3-11.0)
[2021-08-15 14:39] LABS: UREA NITROGEN, BLOOD 96 mg/dL (7-18)
[2021-08-15 16:00] VITALS: BP 134/60
[2021-08-15] MEDS: TAMSULOSIN 0.4 MG CAP.SR.24H PO SCH (17:42)
--- NOTE | 2021-08-15 19:15 | NUR ---
MS RN OPENING NOTES RECEIVED PATIENT ON BED; AWAKE, CONFUSED, COMBATIVE, ALERT AND ORIENTED X1. BREATHING IS EVEN AND UNLABORED. NOT IN ANY FORM OF RESPIRATORY DISTRESS. ON ROOM AIR, WELL TOLERATED. PATIENT KEPT ON PULLING IV LINES; WITH BILATERAL SOFT WRIST RESTRAINTS FOR SAFETY. WITH GASPAR CATHETER IN PLACED DRAINING TO RED ORANGE URINE. WITH IV ACCESS AT LEFT HAND AND RIGHT ANTECUBITAL; INTACT. SAFETY MEASURES IMPLEMENTED: CALL LIGHT AND TABLE WITHIN EASY REACH, SIDE RAILS UP X3, BED IN LOWEST LOCKED POSITION. WILL CONTINUE TO MONITOR
[2021-08-15 20:00] VITALS: BP 118/61
[2021-08-15] MEDS: ATORVASTATIN 10 MG TABLET PO SCH (21:05)
[2021-08-15] MEDS: SENNOSIDES 8.6 MG TABLET PO SCH (21:06)
[2021-08-16] MEDS: INSULIN REGULAR, HUMAN 100 UNIT/ML 3 ML VIAL SQ PRN ×3 (06:57→17:22)
--- NOTE | 2021-08-16 07:15 | NUR ---
MS RN CLOSING NOTES PATIENT ON BED; AWAKE, CONFUSED, COMBATIVE, ALERT AND ORIENTED X1. BREATHING EVENLY AND NONLABORED. NOT IN ANY FORM OF RESPIRATORY DISTRESS. ON ROOM AIR, WELL TOLERATED. WITH GASPAR CATH IN PLACED DRAINING TO RED ORANGE URINE. WITH IV ACCESS AT LEFT HAND AND RIGHT ANTECUBITAL; INTACT. SAFETY MEASURES IN PLACED. ENDORSED TO MORNING SHIFT FOR CONTINUITY OF CARE.
[2021-08-16 07:18] LABS: BASOPHILS % (AUTO) 0.4 % (0.0-2.0); EOSINOPHILS % (AUTO) 0.3 % (0.0-6.0); HEMATOCRIT 30 % (39-51); LYMPHOCYTES # (AUTO) 1.3 K/uL (0.8-4.8); LYMPHOCYTES % (AUTO) 11.9 % (20.0-44.0); MEAN CORPUSCULAR HGB CONC 34 g/dl (31.0-36.0); MEAN CORPUSCULAR VOLUME 88 fL (80-96); MONOCYTES # (AUTO) 0.5 K/uL (0.1-1.30); MONOCYTES % (AUTO) 4.3 % (2.0-12.0); NEUTROPHILS # (AUTO) 8.9 K/uL (1.8-8.9); NEUTROPHILS % (AUTO) 83.1 % (43.0-81.0); PLATELET COUNT (AUTO) 218 K/uL (150-450); RED BLOOD CELL COUNT(AUTO) 3.39 MIL/uL (4.5-6.0); WHITE BLOOD COUNT (AUTO) 10.7 K/uL (4.3-11.0)
--- NOTE | 2021-08-16 07:29 | NUR ---
MS RN OPENING NOTES RECEIVED PT AWAKE IN BED, A/O X1 CONFUSED AND COMBATIVE. PT ON SOFT WRIST RESTRAINT DUE TO PT'S PULLING IV. CHECKED ON CIRCULATIONS, NO SIGNS OF CIRCULATION PROBLEM NOTED. ON RA, TOLERATING WELL. BREATHING IS EVEN AND UNLABORED. NOT IN ANY SIGN OF RESPIRATORY DISTRESS. WITH GASPAR CATHETER IN PLACED DRAINING WELL WITH RED ORANGE COLOR URINE. IV ACCESS ON LEFT HAND AND RAC, G #20, INTACT AND PATENT. SAFETY MEASURES IN PLACED: BED IN LOWEST AND LOCKED POSITION, CALL LIGHT AND TABLE WITHIN EASY REACH, SIDE RAILS UP X3, WILL CONTINUE TO MONITOR
[2021-08-16 07:56] LABS: CALCIUM, SERUM 8.9 mg/dL (8.5-10.1); CARBON DIOXIDE 14 mmol/L (21-32); CHLORIDE 110 mmol/L (98-107); CREATININE 2.5 mg/dL (0.6-1.3); GLUCOSE 170 mg/dL (74-106); POTASSIUM 4.2 mmol/L (3.5-5.1); SODIUM SERUM 141 mmol/L (136-145)
[2021-08-16 08:00] VITALS: BP 144/70
[2021-08-16] MEDS: BLOOD SUGAR DIAGNOSTIC 1 EACH STRIP VI SCH ×4 (08:15→21:47)
[2021-08-16] MEDS: GLUCERNA SHAKE 237 ML CAN PO SCH (08:18)
[2021-08-16] MEDS: PANTOPRAZOLE 40 MG TABLET.DR PO SCH (08:18)
--- NOTE | 2021-08-16 08:18 | NUR ---
WOUND CARE CONSULT: PT PRESENTS WITH BILATERAL HEEL DEEP TISSUE INJURIES WHICH ARE INTACT, NOTED TO BE PRESENT ON ADMISSION. PT ALSO NOTED TO HAVE SACRAL PARTIAL THICKNESS PRESSURE ULCER WITH SOME DISCOLORATION TO BUTTOCKS. PT IS CACHECTIC. PT NOTED TO HAVE MULTIPLE CO-MORBIDITIES INCLUDING SEPSIS, RENAL FAILURE, ACUTE METABOLIC ENCEPHALOPATHY, HYPERTENSION, DIABETES, PERIPHERAL VASCULAR DISEASE, HYPERKALEMIA AND UTI. DUE TO MULTIPLE CO-MORBIDITIES, FURTHER SKIN BREAKDOWN MAY BE UNAVOIDABLE. PER NURSING STAFF, PT IS COMBATIVE AT TIMES. RECOMMENDATIONS MADE FOR SKIN PROTECTION AND WOUND CARE. DISCUSSED WITH NURSING STAFF. SURGICAL AND DPM CONSULTS REQUESTED FROM DR MO AND DR SMITH. DIETARY CONSULT IN PLACE. MD IN AGREEMENT WITH PLAN OF CARE.
[2021-08-16] MEDS ORDERED: HYDROGEL DRESSING 90 GM TUBE TP PRN (08:30)
[2021-08-16 08:31] LABS: UREA NITROGEN, BLOOD 81 mg/dL (7-18)
[2021-08-16] MEDS: METOPROLOL SUCCINATE 25 MG TAB.SR.24H PO SCH (09:50)
[2021-08-16] MEDS: LEVOFLOXACIN (250MG) 250 MG TABLET PO SCH (09:50)
[2021-08-16] MEDS: FERROUS SULFATE (325 MG) 325 MG/TAB TABLET PO SCH (09:50)
[2021-08-16] MEDS: ASPIRIN EC 81 MG TABLET.DR PO SCH (09:50)
[2021-08-16] MEDS: DOCUSATE SODIUM 100 MG CAPSULE PO SCH (09:50)
[2021-08-16] MEDS: HEPARIN SODIUM, PORCINE 5000 UNITS/1 ML VIAL SQ SCH ×2 (09:53→21:31)
[2021-08-16] MEDS: MUPIROCIN OINT 2% 22 GM TUBE NS SCH ×2 (10:07→21:29)
[2021-08-16] MEDS: HYDROGEL DRESSING 90 GM TUBE TP SCH (10:08)
[2021-08-16] MEDS: Z GUARD REMEDY 4 OZ OINT TP SCH ×2 (10:09→21:29)
[2021-08-16] MEDS: ENSURE ENLIVE 237 ML LIQUID (VANILLA) PO SCH ×2 (15:31→17:30)
[2021-08-16 16:07] VITALS: BP 123/64
[2021-08-16] MEDS: TAMSULOSIN 0.4 MG CAP.SR.24H PO SCH (18:08)
--- NOTE | 2021-08-16 19:30 | NUR ---
RN OPENING NOTE PATIENT AWAKE IN BED. A/OX1. NO S/S OF DISTRESS, BREATHING ON RM AIR W/O DIFFICULTY. LH & RAC #[address] TELE MON[address]OR RE[address] 120. SAFETY MEASURES IN PLACE: BED AT LOWEST POSITION, LOCKED, RAILS UP X3, CALL WALLS WITHIN REACH. WILL CONTINUE TO MONITOR PATIENT.
--- NOTE | 2021-08-16 19:33 | NUR ---
MS RN CLOSING NOTES PT AWAKE IN BED, A/O X1 STILL CONFUSED AND COMBATIVE. ON RA, TOLERATING WELL. BREATHING IS EVEN AND UNLABORED. NOT IN ANY SIGN OF RESPIRATORY DISTRESS. WITH GASPAR CATHETER INTACT AND DRAINING WELL WITH RED ORANGE COLOR URINE. IV ACCESS ON LEFT HAND AND RAC, G #20, INTACT AND PATENT. SAFETY MEASURES IN PLACED: BED IN LOWEST AND LOCKED POSITION, CALL LIGHT AND TABLE WITHIN EASY REACH, SIDE RAILS UP X3, ENDORSED TO ANIMAL CARE WORKER NURSE FOR CONTINUITY OF CARE.
[2021-08-16 20:00] VITALS: BP 125/78
[2021-08-16] MEDS: ATORVASTATIN 10 MG TABLET PO SCH (21:29)
[2021-08-16] MEDS: SENNOSIDES 8.6 MG TABLET PO SCH (21:29)
[2021-08-16] MEDS: *INSULIN REGULAR(HUMULIN R)HUM 100 UNIT/ML VIAL SQ PRN (21:57)
[2021-08-17] VITALS: BP 128/66
[2021-08-17 04:00] VITALS: BP 136/59
[2021-08-17] MEDS: BLOOD SUGAR DIAGNOSTIC 1 EACH STRIP VI SCH ×4 (06:49→21:44)
[2021-08-17] MEDS: INSULIN REGULAR, HUMAN 100 UNIT/ML 3 ML VIAL SQ PRN (06:52)
--- NOTE | 2021-08-17 07:03 | NUR ---
RN CLOSING NOTE PATIENT AWAKE IN BED. A/OX1. NO S/S OF DISTRESS, BREATHING ON RM AIR W/O DIFFICULTY. LH & RAC #20 SL INTACT AND PATENT. SAFETY MEASURES IN PLACE: BED AT LOWEST POSITION, LOCKED, RAILS UP X3, CALL WALLS WITHIN REACH. WILL ENDORSE TO NEXT SHIFT FOR JOHN.
[2021-08-17] MEDS: ENSURE ENLIVE 237 ML LIQUID (VANILLA) PO SCH ×2 (08:00→17:34)
--- NOTE | 2021-08-17 08:15 | NUR ---
RN OPENING NOTE PATIENT RECEIVED IN BED, AO X 1, CONFUSE, SITTER AT BEDSIDE. ABLE TO RESPONDS ALL STIMULI. IN NO ACUTE DISTRESS NOTED. RESPIRATORY EVEN AND UNLABORED ON ROOM. SKIN IS WARM TO TOUCH, KEEP CLEAN/DRY, INTACT IV SITE. KEPT ELEVATED HOB FOR ENSURE AIRWAY AND ASPIRATION PRECAUTION, ALSO LOWEST POSITION OF THE BED, S/R UP X 3, ALL SAFETY PRECAUTION APPLIED. CALL LIGHT WITHIN REACH, WILL CONTINUE TO MONITOR.
[2021-08-17] MEDS: PANTOPRAZOLE 40 MG TABLET.DR PO SCH (08:25)
[2021-08-17] MEDS: DOCUSATE SODIUM 100 MG CAPSULE PO SCH (08:25)
[2021-08-17] MEDS: ASPIRIN EC 81 MG TABLET.DR PO SCH (08:25)
[2021-08-17] MEDS: FERROUS SULFATE (325 MG) 325 MG/TAB TABLET PO SCH (08:25)
[2021-08-17] MEDS: Z GUARD REMEDY 4 OZ OINT TP SCH ×2 (08:25→21:40)
[2021-08-17] MEDS: HEPARIN SODIUM, PORCINE 5000 UNITS/1 ML VIAL SQ SCH ×2 (08:27→21:41)
[2021-08-17] MEDS: MUPIROCIN OINT 2% 22 GM TUBE NS SCH ×2 (08:37→21:41)
[2021-08-17] MEDS: HYDROGEL DRESSING 90 GM TUBE TP SCH (08:38)
--- NOTE | 2021-08-17 08:49 | NUR ---
RECEIVED ORDER D/C GASPAR CATH, NOTED AND CARRY OUT AND WILL CONTINUE TO MONITOR.
[2021-08-17 08:50] LABS: BASOPHILS % (AUTO) 0.4 % (0.0-2.0); EOSINOPHILS % (AUTO) 0.4 % (0.0-6.0); HEMATOCRIT 29 % (39-51); HEMOGLOBIN 9.6 g/dL (13.5-17.5); LYMPHOCYTES # (AUTO) 1.7 K/uL (0.8-4.8); LYMPHOCYTES % (AUTO) 14.6 % (20.0-44.0); MEAN CORPUSCULAR HGB CONC 33 g/dl (31.0-36.0); MEAN CORPUSCULAR VOLUME 89 fL (80-96); MONOCYTES # (AUTO) 0.6 K/uL (0.1-1.30); MONOCYTES % (AUTO) 5.4 % (2.0-12.0); NEUTROPHILS # (AUTO) 9.1 K/uL (1.8-8.9); NEUTROPHILS % (AUTO) 79.2 % (43.0-81.0); PLATELET COUNT (AUTO) 260 K/uL (150-450); RED BLOOD CELL COUNT(AUTO) 3.29 MIL/uL (4.5-6.0); WHITE BLOOD COUNT (AUTO) 11.4 K/uL (4.3-11.0)
[2021-08-17 09:54] LABS: CALCIUM, SERUM 8.6 mg/dL (8.5-10.1); CREATININE 2.9 mg/dL (0.6-1.3); GLUCOSE 148 mg/dL (74-106); UREA NITROGEN, BLOOD 75 mg/dL (7-18)
[2021-08-17 10:08] LABS: CARBON DIOXIDE 17 mmol/L (21-32); CHLORIDE 117 mmol/L (98-107); POTASSIUM 4.1 mmol/L (3.5-5.1); SODIUM SERUM 146 mmol/L (136-145)
[2021-08-17] MEDS: LEVOFLOXACIN (250MG) 250 MG TABLET PO SCH (10:08)
[2021-08-17] MEDS: METOPROLOL SUCCINATE 25 MG TAB.SR.24H PO SCH (10:13)
[2021-08-17] MEDS: *INSULIN REGULAR(HUMULIN R)HUM 100 UNIT/ML VIAL SQ PRN ×3 (12:51→21:57)
[2021-08-17] MEDS: TAMSULOSIN 0.4 MG CAP.SR.24H PO SCH (17:30)
--- NOTE | 2021-08-17 18:01 | NUR ---
RN CLOSE NOTE PATIENT IN BED, CONFUSED, IN NO ACUTE DISTRESS OBSERVED. SITTER AT BES SIDE. RESPIRATION EVEN AND UNLABORED ON ROOM AIR. SKIN IS WARM TO TOUCH KEEP CLEAN//DRY, INTACT IV SITE, GASPAR CATH CONNECTING URINE BAG. KEPT ELEVATED HOB FOR ENSURE AIRWAY AND ASPIRATION PRECAUTION. ALSO LOWEST POSITION OF THE BED FOR SAFETY. CALL LIGHT WITHIN REACH, WILL ENDORSE TO RN RESOURCE NURSE.
--- NOTE | 2021-08-17 19:17 | NUR ---
RN OPENING NOTE PATIENT IS AWAKE IN BED W/ SITTER. A/OX1. NO S/S OF DISTRESS; BREATHING ON RM AIR W/O DIFFICULTY. RAC #20 SL INTACT AND PATENT. SAFETY MEASURES IN PLACE: BED AT LOWEST POSITION, LOCKED, RAILS UP X3, CALL WALLS WITHIN REACH. WILL CONTINUE TO MONITOR PATIENT.
[2021-08-17 20:00] VITALS: BP 115/57
[2021-08-17] MEDS: ATORVASTATIN 10 MG TABLET PO SCH (21:39)
[2021-08-17] MEDS: SENNOSIDES 8.6 MG TABLET PO SCH (21:39)
[2021-08-18 06:07] LABS: CALCIUM, SERUM 9.1 mg/dL (8.5-10.1); CARBON DIOXIDE 18 mmol/L (21-32); CHLORIDE 116 mmol/L (98-107); CREATININE 2.7 mg/dL (0.6-1.3); GLUCOSE 200 mg/dL (74-106); POTASSIUM 4.3 mmol/L (3.5-5.1); SODIUM SERUM 145 mmol/L (136-145); UREA NITROGEN, BLOOD 72 mg/dL (7-18)
[2021-08-18] MEDS: INSULIN REGULAR, HUMAN 100 UNIT/ML 3 ML VIAL SQ PRN ×2 (06:30→12:58)
[2021-08-18] MEDS: BLOOD SUGAR DIAGNOSTIC 1 EACH STRIP VI SCH ×3 (06:30→17:35)
[2021-08-18 06:32] LABS: BASOPHILS % (AUTO) 0.3 % (0.0-2.0); EOSINOPHILS % (AUTO) 0.5 % (0.0-6.0); HEMATOCRIT 30 % (39-51); HEMOGLOBIN 9.6 g/dL (13.5-17.5); LYMPHOCYTES # (AUTO) 1.3 K/uL (0.8-4.8); LYMPHOCYTES % (AUTO) 9.3 % (20.0-44.0); MEAN CORPUSCULAR HGB CONC 32 g/dl (31.0-36.0); MEAN CORPUSCULAR VOLUME 89 fL (80-96); MONOCYTES # (AUTO) 0.7 K/uL (0.1-1.30); MONOCYTES % (AUTO) 4.7 % (2.0-12.0); NEUTROPHILS # (AUTO) 11.7 K/uL (1.8-8.9); NEUTROPHILS % (AUTO) 85.2 % (43.0-81.0); PLATELET COUNT (AUTO) 265 K/uL (150-450); RED BLOOD CELL COUNT(AUTO) 3.34 MIL/uL (4.5-6.0); WHITE BLOOD COUNT (AUTO) 13.7 K/uL (4.3-11.0)
--- NOTE | 2021-08-18 07:30 | NUR ---
RECEIVED PT. IN AM ALERT,VERY CONFUSED.HEP LOCK IN PLACE.ALTHOUGH SITTER THERE STILL PULLING ON THINGS.SLEEVE TO IV SITE.F/C TO GRAVITY.
--- NOTE | 2021-08-18 07:48 | NUR ---
RN CLOSING NOTE PATIENT ASLEEP IN BED. A/OX1. NO S/S OF DISTRESS, BREATHING WELL ON RM AIR. RAC #20 SL INTACT AND PATENT. SITTER AT BEDSIDE. SAFETY MEASURES IN PLACE: BED AT LOWEST POSITION, LOCKED, RAILS UP X3, CALL WALLS WITHIN REACH. REPORT GIVEN TO [facility] WHO ACKNOWLEDGED REPORT.
[2021-08-18 08:00] VITALS: BP 117/55
[2021-08-18] MEDS: METOPROLOL SUCCINATE 25 MG TAB.SR.24H PO SCH (10:00)
[2021-08-18] MEDS: FERROUS SULFATE (325 MG) 325 MG/TAB TABLET PO SCH (10:13)
[2021-08-18] MEDS: PANTOPRAZOLE 40 MG TABLET.DR PO SCH (10:13)
[2021-08-18] MEDS: ASPIRIN EC 81 MG TABLET.DR PO SCH (10:13)
[2021-08-18] MEDS: LEVOFLOXACIN (250MG) 250 MG TABLET PO SCH (10:13)
[2021-08-18] MEDS: DOCUSATE SODIUM 100 MG CAPSULE PO SCH (10:13)
[2021-08-18] MEDS: ENSURE ENLIVE 237 ML LIQUID (VANILLA) PO SCH ×2 (10:14→17:36)
[2021-08-18] MEDS: MUPIROCIN OINT 2% 22 GM TUBE NS SCH (10:19)
[2021-08-18] MEDS: HYDROGEL DRESSING 90 GM TUBE TP SCH (10:20)
[2021-08-18] MEDS: Z GUARD REMEDY 4 OZ OINT TP SCH (10:35)
[2021-08-18] MEDS: HEPARIN SODIUM, PORCINE 5000 UNITS/1 ML VIAL SQ SCH (10:38)
[2021-08-18] MEDS ORDERED: LEVO250T59 PO (11:53)
[2021-08-18] MEDS: *INSULIN REGULAR(HUMULIN R)HUM 100 UNIT/ML VIAL SQ PRN (12:54)
[2021-08-18 16:00] VITALS: BP 119/65
--- NOTE | 2021-08-18 18:00 | NUR ---
DR. SHOOK IN DC ORDER GIVEN.REPORT CALLED TO FACILITY.PHOTOS OF SKIN TAKEN AND DRESSING CHANGE TO SACRAL SITE.NEW SKIN TEAR TO LT WRIST.TEGADERM APPLIED.HEP LOCK OUT.REPORT TO DRIVERS.TAKEN TO FACILITY VIA AMBULANCE.
== END 2021-08-18 18:18 | DRG 871 ==
LOC: ER 11:27 → TRANSITION 16:43 → ICU 17:07 → MED 08-14 14:37
PROVIDERS: ADMIT Internal Medicine; ATTEND Internal Medicine
DX: A41.9 Sepsis, unspecified organism (principal); G93.41 Metabolic encephalopathy; I13.0 Hypertensive heart and chronic kidney disease with heart failure and stage 1 through stage 4 chronic kidney disease, or unspecified chronic kidney disease; N17.9 Acute kidney failure, unspecified; N39.0 Urinary tract infection, site not specified; I50.22 Chronic systolic (congestive) heart failure; E87.2 Acidosis; E46 Unspecified protein-calorie malnutrition; Z68.1 Body mass index [BMI] 19.9 or less, adult; E86.0 Dehydration; E11.22 Type 2 diabetes mellitus with diabetic chronic kidney disease; N18.9 Chronic kidney disease, unspecified; B96.4 Proteus (mirabilis) (morganii) as the cause of diseases classified elsewhere; E78.5 Hyperlipidemia, unspecified; E87.5 Hyperkalemia; Z79.4 Long term (current) use of insulin; L89.152 Pressure ulcer of sacral region, stage 2; N40.1 Benign prostatic hyperplasia with lower urinary tract symptoms; R33.8 Other retention of urine; E11.65 Type 2 diabetes mellitus with hyperglycemia; Z20.822 Contact with and (suspected) exposure to COVID-19; L89.626 Pressure-induced deep tissue damage of left heel; L89.616 Pressure-induced deep tissue damage of right heel; E11.51 Type 2 diabetes mellitus with diabetic peripheral angiopathy without gangrene; F03.90 Unspecified dementia, unspecified severity, without behavioral disturbance, psychotic disturbance, mood disturbance, and anxiety
CPT/HCPCS: 36415; 70450-TC; 71045-TC; 76770-TC; 80048-TC; 80053-TC; 80076-TC; 81001; 82962-TC; 83605-TC; 83735-TC; 84100-TC; 84484-TC; 85025-TC; 85730-TC; 87040-TC; 87081-TC; 87086-TC; 87186-TC; 92526; 92611-TC; 93307-TC; 94799-TC; A6248; C9803; G0378; J0692; J0696; J1644; J1815; J2185; J3370; J3490; J7030; J7040; J7060